=== PATIENT | male | born 1975 | race Caucasian/White ===

== ENCOUNTER 2018-08-24 19:11 | Emergency (ER) | payer MEDICAID ==
[~2018-08-24] VITALS: Ht 170.2 cm; Wt 125.2 kg
[2018-08-24 20:04] LABS: BASOPHILS % (AUTO) 0.8 % (0.0-5.0); EOSINOPHILS % (AUTO) 2.8 % (0.0-8.0); HEMATOCRIT 43.6 % (42-54); LYMPHOCYTES % (AUTO) 20.7 % (21.0-51.0); MEAN CORPUSCULAR HEMOGLOBIN 28.8 pg (27.0-33.0); MEAN CORPUSCULAR HGB CONC 32.9 g/dL (32.0-36.0); MEAN CORPUSCULAR VOLUME 87.4 fL (79-99); MONOCYTES % (AUTO) 8.6 % (3.0-13.0); NEUTROPHILS % (AUTO) 67.1 % (40.0-77.0); PLATELET COUNT (AUTO) 212 K/uL (130-400); RED BLOOD CELL COUNT(AUTO) 4.99 MIL/uL (4.50-6.20); RED CELL DISTRIBUTION WIDTH 14.4 % (11.0-15.5)
[2018-08-24 20:36] LABS: APPEARANCE,URINE Clear (CLEAR); BILIRUBIN,URINE Negative (NEGATIVE); COLOR,URINE Yellow (YELLOW); GLUCOSE, URINE (UA) >=1000 mg/dL (NEGATIVE); KETONES,URINE Negative (NEGATIVE); LEUKOCYTE ESTERASE ,URINE Negative (NEGATIVE); NITRATE,URINE Negative (NEGATIVE); OCCULT BLOOD,URINE Negative (NEGATIVE); PROTEIN,URINE POS 2+ (NEGATIVE); UROBILINOGEN,URINE 0.2 mg/dL (0.2-1.0)
[2018-08-24 20:47] LABS: CREATININE 1.3 mg/dL (0.5-1.5); POTASSIUM 3.6 mmol/L (3.5-5.1)
[2018-08-24 20:51] LABS: ALBUMIN 3.4 g/dL (3.5-5.0); BILIRUBIN,TOTAL 0.3 mg/dL (0.2-1.0); TOTAL PROTEIN, SERUM 7.2 g/dL (6.0-8.3)
[2018-08-24] MEDS ORDERED: ACETAMINOPHEN EXTRA STRENGTH 500 MG TABLET ONE (20:57)
[2018-08-24 20:59] LABS: BACTERIA,URINE None Seen /HPF (None Seen); RBC,URINE None Seen /HPF (0-1); SQUAMOUS EPITHELIAL CELL,UR 0-2 /HPF (0-2); WBC,URINE None Seen /HPF (0-1)
[2018-08-24 21:00] LABS: URIC ACID CRYSTALS,URINE Few /LPF (None Seen)
[2018-08-24] MEDS ORDERED: HEMORRHOIDAL OINTMENT 57 GM CREAM.GM. RC SCH (21:15)
== END 2018-08-24 21:34 | disposition home or self-care (01) ==
LOC: EDH 19:11
DX: K60.0 Acute anal fissure (principal); K92.2 Gastrointestinal hemorrhage, unspecified; I10 Essential (primary) hypertension; E11.9 Type 2 diabetes mellitus without complications; Z90.49 Acquired absence of other specified parts of digestive tract; Z98.890 Other specified postprocedural states; Z88.0 Allergy status to penicillin; Z88.6 Allergy status to analgesic agent; Z88.8 Allergy status to other drugs, medicaments and biological substances
CPT/HCPCS: 36415; 74176; 80053; 81001; 82150; 82270; 83690; 85025; 93005

== ENCOUNTER 2018-12-04 18:05 | Emergency (ER) | payer MEDICAID ==
[2018-12-04] MEDS ORDERED: ACETAMINOPHEN-CODEINE 300/30MG TAB ONE (18:27)
[2018-12-04] MEDS ORDERED: ACETAMINOPHEN EXTRA STRENGTH 500 MG TABLET ONE (18:32)
== END 2018-12-04 19:48 | disposition home or self-care (01) ==
LOC: EDH 18:05
DX: S83.8X2A Sprain of other specified parts of left knee, initial encounter (principal); E11.9 Type 2 diabetes mellitus without complications; I10 Essential (primary) hypertension; Z90.49 Acquired absence of other specified parts of digestive tract; Z88.0 Allergy status to penicillin; Z88.6 Allergy status to analgesic agent; Z88.8 Allergy status to other drugs, medicaments and biological substances; W08.XXXA Fall from other furniture, initial encounter; Y93.89 Activity, other specified; Y92.098 Other place in other non-institutional residence as the place of occurrence of the external cause; Y99.8 Other external cause status
CPT/HCPCS: 29505; 73562

== ENCOUNTER 2019-09-05 23:21 | Emergency (ER) | payer MEDICAID ==
[2019-09-06] LABS: BASOPHILS % (AUTO) 0.4 % (0.0-5.0); HEMATOCRIT 44.5 % (42-54); MEAN CORPUSCULAR HEMOGLOBIN 29.3 pg (27.0-33.0); MEAN CORPUSCULAR HGB CONC 32.4 g/dL (32.0-36.0); MEAN CORPUSCULAR VOLUME 90.4 fL (79-99); MONOCYTES % (AUTO) 9.9 % (3.0-13.0); NEUTROPHILS % (AUTO) 67.1 % (40.0-77.0); PLATELET COUNT (AUTO) 250 K/uL (130-400); RED BLOOD CELL COUNT(AUTO) 4.92 MIL/uL (4.50-6.20); RED CELL DISTRIBUTION WIDTH 12.3 % (11.0-15.5); WHITE BLOOD COUNT (AUTO) 9.7 K/uL (4.8-10.8)
[2019-09-06 00:08] LABS: POTASSIUM 3.4 mmol/L (3.5-5.1)
[2019-09-06 00:12] LABS: ALBUMIN 3.5 g/dL (3.5-5.0); BILIRUBIN,TOTAL 0.3 mg/dL (0.2-1.0); TOTAL PROTEIN, SERUM 6.7 g/dL (6.0-8.3)
[2019-09-06 00:13] LABS: INR 0.93 (0.85-1.15); PARTIAL THROMBOPLASTIN TIME 23.3 SEC (26.3-35.5); PROTHROMBIN TIME 9.8 SEC (9.6-11.6)
[2019-09-06 00:27] LABS: APPEARANCE,URINE Clear (CLEAR); BILIRUBIN,URINE Negative (NEGATIVE); COLOR,URINE Yellow (YELLOW); GLUCOSE, URINE (UA) >=1000 mg/dL (NEGATIVE); KETONES,URINE 15 mg/dL (NEGATIVE); LEUKOCYTE ESTERASE ,URINE Negative (NEGATIVE); NITRATE,URINE Negative (NEGATIVE); OCCULT BLOOD,URINE Negative (NEGATIVE); PH,URINE 5.5 (5.0-8.0); PROTEIN,URINE POS 1+ mg/dL (NEGATIVE); UROBILINOGEN,URINE 0.2 mg/dL (0.2-1.0)
[2019-09-06 00:45] LABS: BACTERIA,URINE None Seen /HPF (None Seen); RBC,URINE None Seen /HPF (0-1); WBC,URINE None Seen /HPF (0-1)
[2019-09-06] MEDS ORDERED: POTASSIUM CHLORIDE 10% ELIXIR 20 MEQ/15 ML UDCUP ONE (00:49)
[2019-09-06] MEDS ORDERED: SODIUM CHLORIDE 0.9% 1000ML 1,000 ML IV ONE (00:50)
[2019-09-06 00:51] LABS: AMPHET/METH SCREEN,URINE NEGATIVE (NEGATIVE); BARBITURATE SCREEN, URINE NEGATIVE (NEGATIVE); BENZODIAZEPINES SCREEN,URINE NEGATIVE (NEGATIVE); CANNABINOID SCREEN,URINE NEGATIVE (NEGATIVE); COCAINE SCREEN,URINE NEGATIVE (NEGATIVE); OPIATE SCREEN,URINE NEGATIVE (NEGATIVE); PHENCYCLIDINE SCREEN,URINE NEGATIVE (NEGATIVE)
== END 2019-09-06 02:27 | disposition home or self-care (01) ==
LOC: EDH 23:21
DX: K52.9 Noninfective gastroenteritis and colitis, unspecified (principal); E11.65 Type 2 diabetes mellitus with hyperglycemia; E86.0 Dehydration; I10 Essential (primary) hypertension; E11.9 Type 2 diabetes mellitus without complications; Z88.0 Allergy status to penicillin; Z88.6 Allergy status to analgesic agent
CPT/HCPCS: 36415; 80053; 80305; 81001; 82150; 82270; 82550; 83630; 83690; 84484; 85025; 85610; 85730; 87046; 87804 ×2; 93005; 96360; 99285; J7030

== ENCOUNTER 2019-09-27 20:11 | Emergency (ER) | payer MEDICAID ==
[2019-09-27] MEDS ORDERED: ASPIRIN 325 MG TABLET ONE (20:24)
[2019-09-27 20:39] LABS: BASOPHILS % (AUTO) 0.3 % (0.0-5.0); EOSINOPHILS % (AUTO) 2.3 % (0.0-8.0); HEMATOCRIT 44.6 % (42-54); LYMPHOCYTES % (AUTO) 17.6 % (21.0-51.0); MEAN CORPUSCULAR HEMOGLOBIN 29.4 pg (27.0-33.0); MEAN CORPUSCULAR HGB CONC 32.1 g/dL (32.0-36.0); MEAN CORPUSCULAR VOLUME 91.6 fL (79-99); MONOCYTES % (AUTO) 9.6 % (3.0-13.0); NEUTROPHILS % (AUTO) 69.7 % (40.0-77.0); PLATELET COUNT (AUTO) 234 K/uL (130-400); RED BLOOD CELL COUNT(AUTO) 4.87 MIL/uL (4.50-6.20); RED CELL DISTRIBUTION WIDTH 12.1 % (11.0-15.5); WHITE BLOOD COUNT (AUTO) 8.7 K/uL (4.8-10.8)
[2019-09-27 20:48] LABS: INR 0.94 (0.85-1.15); PARTIAL THROMBOPLASTIN TIME 23.2 SEC (26.3-35.5); PROTHROMBIN TIME 9.9 SEC (9.6-11.6)
[2019-09-27] MEDS ORDERED: METHYLPREDNISOLONE SOD SUCC 125MG/2ML VIAL ONE (20:55)
[2019-09-27 21:00] LABS: APPEARANCE,URINE Clear (CLEAR); BILIRUBIN,URINE Negative (NEGATIVE); COLOR,URINE Yellow (YELLOW); GLUCOSE, URINE (UA) >=1000 mg/dL (NEGATIVE); KETONES,URINE Trace mg/dL (NEGATIVE); LEUKOCYTE ESTERASE ,URINE Negative (NEGATIVE); NITRATE,URINE Negative (NEGATIVE); OCCULT BLOOD,URINE Negative (NEGATIVE); PROTEIN,URINE POS 1+ mg/dL (NEGATIVE); UROBILINOGEN,URINE 0.2 mg/dL (0.2-1.0)
[2019-09-27 21:15] LABS: BACTERIA,URINE None Seen /HPF (None Seen); RBC,URINE None Seen /HPF (0-1); SQUAMOUS EPITHELIAL CELL,UR None Seen /HPF (0-2); WBC,URINE 0-1 /HPF (0-1)
[2019-09-27 21:35] LABS: AMPHET/METH SCREEN,URINE NEGATIVE (NEGATIVE); BARBITURATE SCREEN, URINE NEGATIVE (NEGATIVE); BENZODIAZEPINES SCREEN,URINE NEGATIVE (NEGATIVE); CANNABINOID SCREEN,URINE NEGATIVE (NEGATIVE); COCAINE SCREEN,URINE NEGATIVE (NEGATIVE); OPIATE SCREEN,URINE POSITIVE (NEGATIVE); PHENCYCLIDINE SCREEN,URINE NEGATIVE (NEGATIVE)
== END 2019-09-27 22:33 | disposition home or self-care (01) ==
LOC: EDH 20:11
DX: M77.12 Lateral epicondylitis, left elbow (principal); E11.65 Type 2 diabetes mellitus with hyperglycemia; I10 Essential (primary) hypertension; F41.9 Anxiety disorder, unspecified; J45.909 Unspecified asthma, uncomplicated; Z88.0 Allergy status to penicillin; Z88.6 Allergy status to analgesic agent; Z88.8 Allergy status to other drugs, medicaments and biological substances
CPT/HCPCS: 36415; 71045; 73030; 73070; 80305; 81001; 82550; 84484; 85025; 85610; 85730; 93005; 96374; 99285; J2930

== ENCOUNTER 2019-10-09 20:34 | Emergency (ER) | payer MEDICAID ==
[2019-10-09] MEDS ORDERED: SODIUM CHLORIDE 0.9% 1000ML 1,000 ML IV ONE (21:05)
[2019-10-09 21:10] LABS: BASOPHILS % (AUTO) 0.3 % (0.0-5.0); EOSINOPHILS % (AUTO) 0.9 % (0.0-8.0); HEMATOCRIT 44.4 % (42-54); LYMPHOCYTES % (AUTO) 14.7 % (21.0-51.0); MEAN CORPUSCULAR HEMOGLOBIN 29.4 pg (27.0-33.0); MEAN CORPUSCULAR HGB CONC 32.7 g/dL (32.0-36.0); MEAN CORPUSCULAR VOLUME 90.1 fL (79-99); MONOCYTES % (AUTO) 7.8 % (3.0-13.0); NEUTROPHILS % (AUTO) 75.6 % (40.0-77.0); PLATELET COUNT (AUTO) 249 K/uL (130-400); RED BLOOD CELL COUNT(AUTO) 4.93 MIL/uL (4.50-6.20); WHITE BLOOD COUNT (AUTO) 11.7 K/uL (4.8-10.8)
[2019-10-09 21:37] LABS: APPEARANCE,URINE Clear (CLEAR); BILIRUBIN,URINE Negative (NEGATIVE); COLOR,URINE Yellow (YELLOW); GLUCOSE, URINE (UA) >=1000 mg/dL (NEGATIVE); KETONES,URINE Negative (NEGATIVE); LEUKOCYTE ESTERASE ,URINE Negative (NEGATIVE); NITRATE,URINE Negative (NEGATIVE); OCCULT BLOOD,URINE Negative (NEGATIVE); PROTEIN,URINE Negative (NEGATIVE); UROBILINOGEN,URINE 0.2 mg/dL (0.2-1.0)
[2019-10-09 21:39] LABS: POTASSIUM 3.8 mmol/L (3.5-5.1)
[2019-10-09 21:42] LABS: ALBUMIN 3.5 g/dL (3.5-5.0); BILIRUBIN,TOTAL 0.3 mg/dL (0.2-1.0); TOTAL PROTEIN, SERUM 6.7 g/dL (6.0-8.3)
[2019-10-09 22:07] LABS: BACTERIA,URINE None Seen /HPF (None Seen); RBC,URINE None Seen /HPF (0-1); WBC,URINE None Seen /HPF (0-1)
== END 2019-10-09 22:18 | disposition home or self-care (01) ==
LOC: EDH 20:34
DX: A08.4 Viral intestinal infection, unspecified (principal); F41.9 Anxiety disorder, unspecified; R19.7 Diarrhea, unspecified; J45.909 Unspecified asthma, uncomplicated; E11.9 Type 2 diabetes mellitus without complications; I10 Essential (primary) hypertension; Z90.49 Acquired absence of other specified parts of digestive tract; Z88.0 Allergy status to penicillin; Z88.6 Allergy status to analgesic agent; Z88.8 Allergy status to other drugs, medicaments and biological substances
CPT/HCPCS: 36415; 80053; 81001; 85025; 96360; 99284; J7030

== ENCOUNTER 2019-11-06 14:39 | Inpatient (IN) | payer MEDICAID ==
[~2019-11-06] VITALS: Ht 170.2 cm; Wt 129.5 kg
[2019-11-06] MEDS ORDERED: MORPHINE SULFATE 2 MG/ML 1ML SYG ONE ×2 (15:14→15:27)
[2019-11-06] MEDS ORDERED: SODIUM CHLORIDE 0.9% 1000ML 1,000 ML IV ONE (15:19)
[2019-11-06 15:21] LABS: BASOPHILS % (AUTO) 0.5 % (0.0-5.0); EOSINOPHILS % (AUTO) 2.1 % (0.0-8.0); LYMPHOCYTES % (AUTO) 14.2 % (21.0-51.0); MEAN CORPUSCULAR HGB CONC 32.9 g/dL (32.0-36.0); MEAN CORPUSCULAR VOLUME 91.3 fL (79-99); MONOCYTES % (AUTO) 6.8 % (3.0-13.0); NEUTROPHILS % (AUTO) 75.4 % (40.0-77.0); PLATELET COUNT (AUTO) 212 K/uL (130-400); RED CELL DISTRIBUTION WIDTH 11.9 % (11.0-15.5); WHITE BLOOD COUNT (AUTO) 10.1 K/uL (4.8-10.8)
[2019-11-06 15:30] LABS: CREATININE 0.9 mg/dL (0.5-1.5); POTASSIUM 3.8 mmol/L (3.5-5.1)
[2019-11-06 15:32] LABS: INR 0.92 (0.85-1.15)
[2019-11-06] MEDS ORDERED: IOHEXOL 350 MG/ML 100ML INFUS..BTL IV ONE (15:34)
[2019-11-06 15:35] LABS: ALBUMIN 3.2 g/dL (3.5-5.0); BILIRUBIN,TOTAL 0.3 mg/dL (0.2-1.0); TOTAL PROTEIN, SERUM 6.5 g/dL (6.0-8.3)
[2019-11-06] MEDS ORDERED: ONDANSETRON HCL 4 MG/2 ML VIAL IVP PRN (18:45)
[2019-11-06] MEDS: LACTATED RINGERS 1000ML 1,000 ML IV SCH (18:45)
[2019-11-06 19:16] LABS: HEMATOCRIT 42.3 % (42-54)
[2019-11-06] MEDS ORDERED: MORPHINE SULFATE 4 MG/1ML SYG ONE (20:02)
[2019-11-06] MEDS: PANTOPRAZOLE 40 MG/VIAL IVP SCH (21:00)
[2019-11-06 22:15] VITALS: BP 154/75
[2019-11-06 23:20] VITALS: BP 141/88
[2019-11-07] MEDS: MORPHINE SULFATE 4 MG/1ML SYG IVP PRN ×7 (00:30→23:57)
[2019-11-07 02:47] LABS: HEMATOCRIT 40.4 % (42-54)
[2019-11-07 03:36] VITALS: BP 133/79
[2019-11-07] MEDS: LACTATED RINGERS 1000ML 1,000 ML IV SCH ×3 (04:45→20:20)
[2019-11-07 07:20] LABS: HEMATOCRIT 40.2 % (42-54)
[2019-11-07 07:30] VITALS: BP 130/63
[2019-11-07] MEDS: PANTOPRAZOLE 40 MG/VIAL IVP SCH ×2 (09:02→20:21)
[2019-11-07 11:00] VITALS: BP 155/100
[2019-11-07] MEDS ORDERED: LACTULOSE 20 GM/30 ML UDCUP PO SCH ×2 (12:45→14:30)
[2019-11-07] MEDS ORDERED: MAGNESIUM CITRATE 296 ML SOLUTION PO SCH (15:00)
[2019-11-07 16:00] VITALS: BP 160/95
[2019-11-07] MEDS ORDERED: PEG 3350/NA SULF,BICARB,CL/KCL 4000 ML SOLN PO SCH (16:00)
[2019-11-07 17:51] LABS: HEMATOCRIT 42.8 % (42-54)
[2019-11-07] MEDS: BISACODYL 5 MG TABLET.DR PO SCH (18:34)
[2019-11-07 20:04] VITALS: BP 139/97
[2019-11-07 23:32] VITALS: BP 146/94
[2019-11-08] VITALS (19 sets, daily range): BP systolic 119–172; BP diastolic 59–106
--- NOTE | 2019-11-08 01:29 | NUR ---
Patient refuses to wear telemetry pack. consent for refusal signed. loader [employer] S[employer], notified and information technology specialist Karyna notified. pack taken back to 2nd floor
[2019-11-08] MEDS: MORPHINE SULFATE 4 MG/1ML SYG IVP PRN (04:19)
--- NOTE | 2019-11-08 04:19 | NUR ---
gave tap water enema at 21:00 and now at 04:18. patient continues to have loose stools.
[2019-11-08 06:20] LABS: MEAN CORPUSCULAR HEMOGLOBIN 29.4 pg (27.0-33.0); MEAN CORPUSCULAR HGB CONC 31.8 g/dL (32.0-36.0); MEAN CORPUSCULAR VOLUME 92.4 fL (79-99); PLATELET COUNT (AUTO) 220 K/uL (130-400); RED BLOOD CELL COUNT(AUTO) 4.22 MIL/uL (4.50-6.20); WHITE BLOOD COUNT (AUTO) 8.6 K/uL (4.8-10.8)
[2019-11-08 06:37] LABS: POTASSIUM 3.1 mmol/L (3.5-5.1)
[2019-11-08] MEDS ORDERED: POTASSIUM CHLORIDE 20 MEQ ERTAB PO PRN (07:45)
[2019-11-08] MEDS ORDERED: POTASSIUM CHLORIDE 20MEQ/100ML 100 ML IV PRN (07:45)
[2019-11-08] MEDS ORDERED: POTASSIUM CHLORIDE 10% ELIXIR 20 MEQ/15 ML UDCUP PO PRN (07:45)
[2019-11-08] MEDS ORDERED: LIDOCAINE HCL-MPF 1% 2ML VIAL IV PRN (07:45)
[2019-11-08] MEDS: PANTOPRAZOLE 40 MG/VIAL IVP SCH ×2 (08:33→21:00)
[2019-11-08] MEDS: MORPHINE SULFATE 2 MG/ML 1ML SYG IVP PRN ×3 (08:35→21:34)
[2019-11-08] MEDS: LACTATED RINGERS 1000ML 1,000 ML IV SCH ×2 (10:45→21:00)
[2019-11-08] MEDS: METRONIDAZOLE 500 MG TABLET PO SCH ×2 (17:00→21:01)
[2019-11-08] MEDS: BISACODYL 5 MG TABLET.DR PO SCH (17:05)
[2019-11-08] MEDS ORDERED: PROPOFOL 10 MG/ML 20ML VIAL IV ONE ×3 (19:33→19:47)
[2019-11-08] MEDS ORDERED: IPRATROPIUM/ALBUTEROL SULFATE 3 ML SOLUTION IH ONE (20:27)
--- NOTE | 2019-11-08 22:50 | NUR ---
patient would like to leave against medical advice. risks of worsening condition and possibly were explained to the patient. told the patient that he needs to follow up with his primary provider for follow up. both IV's on his left and right hand were removed and catheter tip intact. patient claims that he has issues going on at home and he can't stand being in the hospital any longer. He says he is starving and needs to get his food stamps at midnight for his and daughter. his colonoscopy results showed gastritis and esophagitis with redness mucosa in the colon. meliza rinaldi, paged at 22:55 to let him know about the situation. halfway house counselor, anne ROME called at 22:52 to let her know.
[2019-11-09] MEDS ORDERED: PANTOPRAZOLE SODIUM 40 MG TABLET.DR PO SCH (07:30)
== END 2019-11-08 22:58 | disposition left against medical advice (07) | DRG 241 ==
LOC: EDH 14:39 → INTOOBSV 14:40 → OBSVTOIN 14:40 → EDHIP 14:40 → 3BH 20:34
PROVIDERS: ADMIT Internal Medicine Critical Care Medicine; ATTEND Internal Medicine Critical Care Medicine
PROC: 0DB58ZX Excision of Esophagus, Via Natural or Artificial Opening Endoscopic, Diagnostic (ICD-10-PCS; principal; 2019-11-08)
PROC: 0DB68ZX Excision of Stomach, Via Natural or Artificial Opening Endoscopic, Diagnostic (ICD-10-PCS; 2019-11-08)
PROC: 0DJD8ZZ Inspection of Lower Intestinal Tract, Via Natural or Artificial Opening Endoscopic (ICD-10-PCS; 2019-11-08)
DX: K29.01 Acute gastritis with bleeding (principal); A04.72 Enterocolitis due to Clostridium difficile, not specified as recurrent; W18.30XA Fall on same level, unspecified, initial encounter; E11.9 Type 2 diabetes mellitus without complications; E66.01 Morbid (severe) obesity due to excess calories; F43.10 Post-traumatic stress disorder, unspecified; I10 Essential (primary) hypertension; I25.10 Atherosclerotic heart disease of native coronary artery without angina pectoris; J45.909 Unspecified asthma, uncomplicated; M19.90 Unspecified osteoarthritis, unspecified site; K21.0 Gastro-esophageal reflux disease with esophagitis; R13.10 Dysphagia, unspecified; K64.0 First degree hemorrhoids; K63.89 Other specified diseases of intestine; Z53.29 Procedure and treatment not carried out because of patient's decision for other reasons; D62 Acute posthemorrhagic anemia; Z82.49 Family history of ischemic heart disease and other diseases of the circulatory system; Z83.3 Family history of diabetes mellitus; Z88.0 Allergy status to penicillin; Z68.41 Body mass index [BMI] 40.0-44.9, adult; Z88.8 Allergy status to other drugs, medicaments and biological substances; Y93.89 Activity, other specified; Y92.89 Other specified places as the place of occurrence of the external cause; Y99.8 Other external cause status; Z90.49 Acquired absence of other specified parts of digestive tract; Z79.899 Other long term (current) drug therapy
CPT/HCPCS: 36415; 43239; 45378; 74177; 80048; 80053; 82270; 82948; 85014; 85018; 85025; 85027; 85610; 85730; 86850; 86900; 86901; 86922; 87493; 88305; 88342; 93005; 94640; C9113; G0378; J2270; J2704; J7030; J7120; Q9967

== ENCOUNTER 2019-12-03 21:09 | Emergency (ER) | payer MEDICAID ==
[2019-12-03 22:02] LABS: RAPID GROUP A STREP NEGATIVE (NEGATIVE)
== END 2019-12-03 22:49 | disposition home or self-care (01) ==
LOC: EDH 21:09
DX: A09 Infectious gastroenteritis and colitis, unspecified (principal); F41.9 Anxiety disorder, unspecified; J45.909 Unspecified asthma, uncomplicated; E11.9 Type 2 diabetes mellitus without complications; I10 Essential (primary) hypertension; Z88.6 Allergy status to analgesic agent; Z88.0 Allergy status to penicillin; Z88.8 Allergy status to other drugs, medicaments and biological substances
CPT/HCPCS: 87804; 87880

== ENCOUNTER 2021-07-23 19:07 | Inpatient (IN) | payer MEDICAID ==
[~2021-07-23] VITALS: Ht 170.2 cm; Wt 125.0 kg
[2021-07-23 19:38] LABS: BASOPHILS % (AUTO) 0.2 % (0.0-5.0); EOSINOPHILS % (AUTO) 1.1 % (0.0-8.0); HEMATOCRIT 44.7 % (42-54); LYMPHOCYTES % (AUTO) 14.5 % (21.0-51.0); MEAN CORPUSCULAR HEMOGLOBIN 29.7 pg (27.0-33.0); MEAN CORPUSCULAR HGB CONC 32.4 g/dL (32.0-36.0); MEAN CORPUSCULAR VOLUME 91.6 fL (79-99); MONOCYTES % (AUTO) 8.7 % (3.0-13.0); NEUTROPHILS % (AUTO) 74.8 % (40.0-77.0); PLATELET COUNT (AUTO) 246 K/uL (130-400); RED BLOOD CELL COUNT(AUTO) 4.88 MIL/uL (4.50-6.20); RED CELL DISTRIBUTION WIDTH 12.3 % (11.0-15.5); WHITE BLOOD COUNT (AUTO) 10.1 K/uL (4.8-10.8)
[2021-07-23 19:48] LABS: CREATININE 1.1 mg/dL (0.5-1.5); POTASSIUM 3.3 mmol/L (3.5-5.1)
[2021-07-23 19:52] LABS: ALBUMIN 3.9 g/dL (3.5-5.0); BILIRUBIN,TOTAL 0.3 mg/dL (0.2-1.0)
[2021-07-23] MEDS ORDERED: 0.9%NACL 1000ML 1,000 ML IV ONE ×2 (20:00→20:07)
[2021-07-23] MEDS ORDERED: PHENAZOPYRIDINE HCL 200 MG TABLET PO ONE (20:00)
[2021-07-23] MEDS ORDERED: POTASSIUM BICARB/CIT AC 25 MEQ TABLET.EFF PO ONE (20:00)
[2021-07-23] MEDS ORDERED: INSULIN HUMULIN R 100 UNIT/ML 3ML SQ ONE (20:00)
[2021-07-23] MEDS ORDERED: PHENAZOPYRIDINE HCL 200 MG TABLET ONE (20:09)
[2021-07-23 20:48] LABS: APPEARANCE,URINE Clear (CLEAR); BILIRUBIN,URINE Negative (NEGATIVE); COLOR,URINE Yellow (YELLOW); GLUCOSE, URINE (UA) >=1000 mg/dL (NEGATIVE); KETONES,URINE Negative (NEGATIVE); LEUKOCYTE ESTERASE ,URINE Negative (NEGATIVE); NITRATE,URINE Negative (NEGATIVE); OCCULT BLOOD,URINE Negative (NEGATIVE); PROTEIN,URINE POS 2+ mg/dL (NEGATIVE); UROBILINOGEN,URINE 0.2 mg/dL (0.2-1.0)
[2021-07-23 20:55] LABS: RBC,URINE None Seen /HPF (0-1); WBC,URINE 0-1 /HPF (0-1)
[2021-07-23 20:56] LABS: BACTERIA,URINE None Seen /HPF (None Seen); SQUAMOUS EPITHELIAL CELL,UR None Seen /HPF (0-2)
[2021-07-23] MEDS ORDERED: ONDANSETRON 4MG INJ IV PRN (21:00)
[2021-07-23] MEDS ORDERED: HYDRALAZINE 20MG/ML VIAL IV PRN (21:00)
[2021-07-23] MEDS ORDERED: LACTULOSE 20 GM/30 ML UDCUP PO PRN (21:00)
[2021-07-23] MEDS ORDERED: ACETAMINOPHEN 325 MG TAB PO PRN ×2 (21:00)
[2021-07-23] MEDS ORDERED: METF-446 PO (21:18)
[2021-07-23] MEDS ORDERED: ALPR1TAB2 PO (21:18)
[2021-07-23] MEDS ORDERED: HYDR-4068 PO (21:18)
[2021-07-23] MEDS ORDERED: PIOG30TA10 PO (21:18)
[2021-07-23] MEDS: LACTATED RINGERS 1000ML 1,000 ML IV SCH (21:41)
[2021-07-23] MEDS: MORPHINE 2 MG SYG IV PRN (21:42)
[2021-07-23] MEDS ORDERED: PROMETHAZINE HCL 25 MG/ML 1ML AMPULE IM PRN (22:30)
[2021-07-23] MEDS ORDERED: PANTOPRAZOLE 40MG INJ 80 MG in 0.9%NACL 100ML 100 ML IVP SCH (23:30)
[2021-07-23] MEDS ORDERED: ALPRAZOLAM 1 MG TAB PO ONE (23:30)
[2021-07-23] MEDS ORDERED: PANTOPRAZOLE 40 MG/VIAL ONE (23:40)
[2021-07-23] MEDS ORDERED: 0.9%NACL 100ML 100 ML ONE (23:40)
[2021-07-23] MEDS: PANTOPRAZOLE 40MG INJ 80 MG in 0.9%NACL 100ML 100 ML IV SCH (23:50)
[2021-07-24] MEDS ORDERED: INSULIN HUMULIN R 100 UNIT/ML 3ML SQ SCH
[2021-07-24 00:32] LABS: HEMATOCRIT 42.9 % (42-54)
[2021-07-24] MEDS: INSULIN HUMULIN R 100 UNIT/ML 3ML SQ SCH ×5 (00:44→20:31)
[2021-07-24] MEDS: MORPHINE 2 MG SYG IV PRN ×3 (01:50→19:35)
[2021-07-24 03:10] VITALS: BP 137/87
[2021-07-24] MEDS ORDERED: ALBU18HF7 IH (03:29)
[2021-07-24] MEDS ORDERED: INSU100V37 SQ (03:32)
[2021-07-24] MEDS ORDERED: EXEN10PE3 SQ (03:37)
[2021-07-24 06:29] LABS: HEMOGLOBIN A1C 10.8 % (4.0-6.0)
[2021-07-24 06:31] LABS: ALBUMIN 3.2 g/dL (3.5-5.0); BILIRUBIN,TOTAL 0.5 mg/dL (0.2-1.0); CREATININE 0.9 mg/dL (0.5-1.5); POTASSIUM 3.1 mmol/L (3.5-5.1); TOTAL PROTEIN, SERUM 6.5 g/dL (6.0-8.3)
[2021-07-24] MEDS: LACTATED RINGERS 1000ML 1,000 ML IV SCH ×2 (07:00→09:44)
[2021-07-24 07:48] VITALS: BP 132/79
[2021-07-24] MEDS: PANTOPRAZOLE 40MG INJ 80 MG in 0.9%NACL 100ML 100 ML IV SCH ×2 (08:56→20:15)
[2021-07-24] MEDS: HYDROCODONE/ACETAMINOPHEN 10/325 MG TAB PO PRN ×3 (09:45→23:24)
[2021-07-24 11:56] LABS: HEMATOCRIT 41.7 % (42-54)
[2021-07-24 12:26] VITALS: BP 125/104
[2021-07-24 13:03] LABS: AMPHET/METH SCREEN,URINE NEGATIVE (NEGATIVE); BARBITURATE SCREEN, URINE NEGATIVE (NEGATIVE); BENZODIAZEPINES SCREEN,URINE NEGATIVE (NEGATIVE); CANNABINOID SCREEN,URINE NEGATIVE (NEGATIVE); COCAINE SCREEN,URINE NEGATIVE (NEGATIVE); OPIATE SCREEN,URINE NEGATIVE (NEGATIVE); PHENCYCLIDINE SCREEN,URINE NEGATIVE (NEGATIVE)
[2021-07-24] MEDS ORDERED: PEG 3350/NA SULF,BICARB,CL/KCL 4000 ML SOLN PO SCH (15:00)
[2021-07-24 15:16] VITALS: BP 136/76
[2021-07-24] MEDS ORDERED: POTASSIUM CHLORIDE 20MEQ/100ML 100 ML IV PRN (18:00)
[2021-07-24] MEDS ORDERED: POTASSIUM CHLORIDE 10% ELIXIR 20 MEQ/15 ML UDCUP PO PRN (18:00)
[2021-07-24 18:03] LABS: HEMATOCRIT 43.4 % (42-54)
[2021-07-24] MEDS: KCL 20 MEQ ERTAB PO PRN ×3 (19:25→23:21)
[2021-07-24 19:56] VITALS: BP 138/92
[2021-07-24] MEDS ORDERED: ALPRAZOLAM 1 MG TAB PO SCH (21:00)
[2021-07-25] VITALS (13 sets, daily range): BP systolic 110–144; BP diastolic 70–96
[2021-07-25] MEDS: MORPHINE 2 MG SYG IV PRN ×3 (01:28→11:06)
[2021-07-25] MEDS: LACTATED RINGERS 1000ML 1,000 ML IV SCH (02:42)
[2021-07-25] MEDS: INSULIN HUMULIN R 100 UNIT/ML 3ML SQ SCH ×2 (05:49→11:29)
[2021-07-25 07:20] LABS: BASOPHILS % (AUTO) 0.6 % (0.0-5.0); EOSINOPHILS % (AUTO) 3.7 % (0.0-8.0); HEMATOCRIT 38.4 % (42-54); MEAN CORPUSCULAR HEMOGLOBIN 29.6 pg (27.0-33.0); MEAN CORPUSCULAR HGB CONC 31.3 g/dL (32.0-36.0); MEAN CORPUSCULAR VOLUME 94.8 fL (79-99); MONOCYTES % (AUTO) 11.7 % (3.0-13.0); NEUTROPHILS % (AUTO) 55.7 % (40.0-77.0); PLATELET COUNT (AUTO) 201 K/uL (130-400); RED BLOOD CELL COUNT(AUTO) 4.05 MIL/uL (4.50-6.20); RED CELL DISTRIBUTION WIDTH 12.4 % (11.0-15.5); WHITE BLOOD COUNT (AUTO) 6.6 K/uL (4.8-10.8)
[2021-07-25 07:28] LABS: CREATININE 0.9 mg/dL (0.5-1.5); POTASSIUM 3.5 mmol/L (3.5-5.1)
[2021-07-25] MEDS ORDERED: LIDOCAINE HCL 1% 20 ML VIAL ONE (08:55)
[2021-07-25] MEDS ORDERED: PROPOFOL 10 MG/ML 20ML VIAL IV ONE (08:55)
[2021-07-25] MEDS: HYDROCODONE/ACETAMINOPHEN 10/325 MG TAB PO PRN (12:31)
[2021-08-21] MEDS ORDERED: HYDR-4068 PO (11:55)
[2021-08-23] MEDS ORDERED: METR-172 PO (16:15)
[2021-08-23] MEDS ORDERED: HYDR25SU11 PR (16:15)
== END 2021-07-25 14:59 | disposition left against medical advice (07) | DRG 253 ==
LOC: EDH 19:07 → EDHIP 19:08 → 4BH 07-24 02:48
PROVIDERS: ADMIT Hospitalist; ATTEND Hospitalist
PROC: 0DBN8ZZ Excision of Sigmoid Colon, Via Natural or Artificial Opening Endoscopic (ICD-10-PCS; principal; 2021-07-25)
PROC: 0DBL8ZZ Excision of Transverse Colon, Via Natural or Artificial Opening Endoscopic (ICD-10-PCS; 2021-07-25)
DX: K92.2 Gastrointestinal hemorrhage, unspecified (principal); K76.0 Fatty (change of) liver, not elsewhere classified; E66.01 Morbid (severe) obesity due to excess calories; D62 Acute posthemorrhagic anemia; Z68.41 Body mass index [BMI] 40.0-44.9, adult; E87.6 Hypokalemia; F43.10 Post-traumatic stress disorder, unspecified; G89.29 Other chronic pain; I10 Essential (primary) hypertension; Z20.822 Contact with and (suspected) exposure to COVID-19; M19.90 Unspecified osteoarthritis, unspecified site; K63.5 Polyp of colon; K64.4 Residual hemorrhoidal skin tags; K64.0 First degree hemorrhoids; K21.9 Gastro-esophageal reflux disease without esophagitis; F41.9 Anxiety disorder, unspecified; E11.9 Type 2 diabetes mellitus without complications; Z79.891 Long term (current) use of opiate analgesic; Z90.49 Acquired absence of other specified parts of digestive tract; Z88.0 Allergy status to penicillin; Z88.8 Allergy status to other drugs, medicaments and biological substances; Z86.010 Personal history of colon polyps; Z87.19 Personal history of other diseases of the digestive system; Z87.828 Personal history of other (healed) physical injury and trauma; K57.90 Diverticulosis of intestine, part unspecified, without perforation or abscess without bleeding
CPT/HCPCS: 36415; 74176; 80048; 80053; 80305; 81001; 82270; 82948; 83036; 85014; 85018; 85025; 86850; 86900; 86901; 87635; 88305; A4606; C9113; G0378; J1815; J2704; J7030; J7120

== ENCOUNTER 2021-08-05 16:25 | Emergency (ER) | payer MEDICAID ==
[~2021-08-05] VITALS: Ht 170.2 cm; Wt 124.3 kg
[~2021-08-05 16:25] MED LIST: ALBU18HF7 IH; ALPR1TAB2 PO; EXEN10PE3 SQ; HYDR-4068 PO; INSU100V37 SQ; METF-446 PO; PIOG30TA10 PO
[2021-08-05 16:31] VITALS: BP 150/102
[2021-08-05] MEDS ORDERED: 0.9%NACL 1000ML 1,000 ML IV ONE ×2 (18:00→18:08)
[2021-08-05] MEDS ORDERED: CLINDAMYCIN IVPB 600MG/50ML 50 ML IV ONE (18:10)
[2021-08-05] MEDS ORDERED: INSULIN HUMULIN R 100 UNIT/ML 3ML ONE (18:11)
[2021-08-05] MEDS ORDERED: ACETAMINOPHEN 500 MG TABLET PO ONE (19:00)
[2021-08-05] MEDS ORDERED: INSULIN HUMULIN R 100 UNIT/ML 3ML IV ONE (19:00)
[2021-08-05] MEDS ORDERED: CLINDAMYCIN IVPB 600MG/50ML 50 ML IV SCH (19:00)
[2021-08-05] MEDS ORDERED: INSULIN HUMULIN R 100 UNIT/ML 3ML SQ ONE (19:00)
[2021-08-05] MEDS ORDERED: CEPH500B PO (19:36)
[2021-08-05] MEDS ORDERED: MUPI22O TP (19:36)
[2021-08-05] MEDS ORDERED: ACET-2247 PO (19:36)
[2021-08-21] MEDS ORDERED: HYDR-4068 PO (11:55)
[2021-08-23] MEDS ORDERED: HYDR25SU11 PR (16:15)
[2021-08-23] MEDS ORDERED: METR-172 PO (16:15)
== END 2021-08-05 19:53 | disposition home or self-care (01) ==
LOC: EDH 16:25
DX: L02.211 Cutaneous abscess of abdominal wall (principal); B95.8 Unspecified staphylococcus as the cause of diseases classified elsewhere; E11.65 Type 2 diabetes mellitus with hyperglycemia; I10 Essential (primary) hypertension; Z98.890 Other specified postprocedural states; Z88.0 Allergy status to penicillin; Z88.6 Allergy status to analgesic agent; Z88.8 Allergy status to other drugs, medicaments and biological substances; Z79.899 Other long term (current) drug therapy; Z68.41 Body mass index [BMI] 40.0-44.9, adult
CPT/HCPCS: 82948 ×2; 96365; 96375; 99284; J1815; J3490; J7030

== ENCOUNTER 2021-09-30 07:03 | Emergency (ER) | payer MEDICAID ==
[~2021-09-30 07:03] MED LIST changes: +HYDR25SU11 PR; +METR-172 PO; +MUPI22O TP
[2021-09-30 07:41] LABS: APPEARANCE,URINE Clear (CLEAR); BILIRUBIN,URINE Negative (NEGATIVE); COLOR,URINE Yellow (YELLOW); GLUCOSE, URINE (UA) Negative (NEGATIVE); KETONES,URINE Negative (NEGATIVE); LEUKOCYTE ESTERASE ,URINE Negative (NEGATIVE); NITRATE,URINE Negative (NEGATIVE); OCCULT BLOOD,URINE Negative (NEGATIVE); PROTEIN,URINE Trace mg/dL (NEGATIVE); UROBILINOGEN,URINE 0.2 mg/dL (0.2-1.0)
[2021-09-30 07:44] LABS: BASOPHILS % (AUTO) 0.4 % (0.0-5.0); EOSINOPHILS % (AUTO) 1.9 % (0.0-8.0); HEMATOCRIT 41.2 % (42-54); LYMPHOCYTES % (AUTO) 20.3 % (21.0-51.0); MEAN CORPUSCULAR HEMOGLOBIN 29.7 pg (27.0-33.0); MEAN CORPUSCULAR HGB CONC 31.6 g/dL (32.0-36.0); MEAN CORPUSCULAR VOLUME 94.3 fL (79-99); MONOCYTES % (AUTO) 12.6 % (3.0-13.0); PLATELET COUNT (AUTO) 320 K/uL (130-400); RED BLOOD CELL COUNT(AUTO) 4.37 MIL/uL (4.50-6.20); RED CELL DISTRIBUTION WIDTH 12.3 % (11.0-15.5); WHITE BLOOD COUNT (AUTO) 9.5 K/uL (4.8-10.8)
[2021-09-30 07:51] LABS: BACTERIA,URINE None Seen /HPF (None Seen); RBC,URINE 0-1 /HPF (0-1); SQUAMOUS EPITHELIAL CELL,UR 0-2 /HPF (0-2); WBC,URINE 0-1 /HPF (0-1)
[2021-09-30 07:56] LABS: POTASSIUM 4.3 mmol/L (3.5-5.1)
[2021-09-30 08:00] LABS: BILIRUBIN,TOTAL 0.2 mg/dL (0.2-1.0); TOTAL PROTEIN, SERUM 6.7 g/dL (6.0-8.3)
[2021-09-30] MEDS ORDERED: HYDROCODONE/ACETAMINOPHEN 10/325 MG TAB ONE (08:00)
[2021-09-30] MEDS ORDERED: HYDROCODONE/ACETAMINOPHEN 10/325 MG TAB PO SCH (08:00)
[2021-09-30] MEDS ORDERED: ACET1TAB25 PO (09:47)
[2021-09-30 10:15] VITALS: BP 149/84
== END 2021-09-30 10:13 | disposition home or self-care (01) ==
LOC: EDH 07:03
DX: R10.31 Right lower quadrant pain (principal); R30.0 Dysuria; E11.9 Type 2 diabetes mellitus without complications; F41.9 Anxiety disorder, unspecified; I10 Essential (primary) hypertension; Z88.0 Allergy status to penicillin; Z88.5 Allergy status to narcotic agent; Z88.8 Allergy status to other drugs, medicaments and biological substances; Z90.49 Acquired absence of other specified parts of digestive tract; Z79.4 Long term (current) use of insulin
CPT/HCPCS: 36415; 74176; 80053; 81001; 83690; 85025; 93005

== ENCOUNTER 2021-11-27 16:21 | Emergency (ER) | payer MEDICAID ==
[~2021-11-27] VITALS: Ht 172.7 cm; Wt 122.5 kg
[~2021-11-27 16:21] MED LIST changes: +ACET-2079 PO
[2021-11-27] MEDS ORDERED: ACETAMINOPHEN WITH CODEINE 1 TAB TAB PO ONE (17:00)
[2021-11-27] MEDS ORDERED: ALBUTEROL INHALER 90MCG/INH IH PRN (17:00)
[2021-11-27 17:02] LABS: BASOPHILS % (AUTO) 0.3 % (0.0-5.0); EOSINOPHILS % (AUTO) 0.3 % (0.0-8.0); HEMATOCRIT 45.8 % (42-54); LYMPHOCYTES % (AUTO) 12.4 % (21.0-51.0); MEAN CORPUSCULAR HEMOGLOBIN 28.3 pg (27.0-33.0); MEAN CORPUSCULAR HGB CONC 31.4 g/dL (32.0-36.0); NEUTROPHILS % (AUTO) 71.7 % (40.0-77.0); PLATELET COUNT (AUTO) 208 K/uL (130-400); RED BLOOD CELL COUNT(AUTO) 5.09 MIL/uL (4.50-6.20); RED CELL DISTRIBUTION WIDTH 12.3 % (11.0-15.5); WHITE BLOOD COUNT (AUTO) 7.5 K/uL (4.8-10.8)
[2021-11-27] MEDS ORDERED: AZITHROMYCIN 250 MG TABLET PO ONE (17:30)
[2021-11-27] MEDS ORDERED: 0.9%NACL 1000ML 1,000 ML IV ONE (17:30)
[2021-11-27] MEDS ORDERED: CEFTRIAXONE 1G VIAL IVP ONE (17:30)
[2021-11-27] MEDS ORDERED: OSELTAMIVIR PHOSPHATE 75 MG CAP PO SCH (17:30)
[2021-11-27] MEDS ORDERED: ACETAMINOPHEN 500 MG TABLET PO ONE (18:00)
[2021-11-27] MEDS ORDERED: GUAIFENESIN-DM 200/20 MG 10 ML PO ONE (18:00)
[2021-11-27 18:08] LABS: POTASSIUM 3.8 mmol/L (3.5-5.1)
[2021-11-27 18:13] LABS: ALBUMIN 3.6 g/dL (3.5-5.0); BILIRUBIN,TOTAL 0.6 mg/dL (0.2-1.0); TOTAL PROTEIN, SERUM 8.2 g/dL (6.0-8.3)
[2021-11-27] MEDS ORDERED: OSEL75 PO (18:33)
[2021-11-27] MEDS ORDERED: D-ME1POW16 PO (18:33)
[2021-11-27] MEDS ORDERED: DOXY-336 PO (18:33)
[2021-11-27] MEDS ORDERED: ALBU8.5H8 IH (18:35)
[2021-11-27 19:21] VITALS: BP 136/76
== END 2021-11-27 19:22 | disposition home or self-care (01) ==
LOC: EDH 16:21
DX: J10.1 Influenza due to other identified influenza virus with other respiratory manifestations (principal); J40 Bronchitis, not specified as acute or chronic; I95.1 Orthostatic hypotension; E66.9 Obesity, unspecified; Z20.822 Contact with and (suspected) exposure to COVID-19; E11.9 Type 2 diabetes mellitus without complications; F41.9 Anxiety disorder, unspecified; I10 Essential (primary) hypertension; Z68.41 Body mass index [BMI] 40.0-44.9, adult; Z88.5 Allergy status to narcotic agent; Z88.0 Allergy status to penicillin; Z88.6 Allergy status to analgesic agent; Z88.8 Allergy status to other drugs, medicaments and biological substances; Z79.899 Other long term (current) drug therapy; Z79.4 Long term (current) use of insulin; Z79.84 Long term (current) use of oral hypoglycemic drugs
CPT/HCPCS: 36415; 71045; 80053; 83605; 84484; 85025; 87635; 87804 ×2; 87880; 96361; 96374; 99284; C9803; J0696; J7030